=== PATIENT | female | born 1975 | race Caucasian/White ===

== ENCOUNTER 2019-01-29 05:14 | Emergency (ER) | payer SELFPAY ==
[2019-01-29 05:22] VITALS: TEMP 97.3
[2019-01-29] MEDS ORDERED: SODIUM CHLORIDE 0.9% 1000ML 1,000 ML IV ONE ×3 (05:27→06:57)
[2019-01-29] MEDS ORDERED: SODIUM CHLORIDE 0.9% FLUSH 10 ML SOL IV PRN (05:28)
[2019-01-29] MEDS ORDERED: HYDROMORPHONE 1 MG/ML SYRINGE IV ONE (05:28)
[2019-01-29] MEDS ORDERED: ONDANSETRON HCL 4 MG/2 ML SOL IV ONE (05:28)
[2019-01-29] MEDS ORDERED: ONDANSETRON HCL 4 MG/2 ML SOL ONE (05:29)
[2019-01-29] MEDS ORDERED: HYDROMORPHONE 1 MG/ML SYRINGE ONE (05:29)
[2019-01-29 06:00] LABS: BASOPHILS % (AUTO) 1 % (0-3); EOSINOPHILS % (AUTO) 2 % (0-9); HEMATOCRIT 40 % (35-47); HEMOGLOBIN 12.7 gm/dl (12.0-15.5); LYMPHOCYTES % (AUTO) 14.4 % (10-50); MEAN CORPUSCULAR HEMOGLOBIN 25.2 pg (27.0-32.0); MEAN CORPUSCULAR HGB CONC 31.9 gm/dl (32.0-36.0); MONOCYTES % (AUTO) 6.6 % (0-12); NEUTROPHILS % (AUTO) 76.3 % (37-80)
[2019-01-29 06:01] LABS: ALBUMIN 3.7 gm/dl (3.4-5.0); BILIRUBIN,TOTAL 0.3 mg/dl (0.2-1.0); CALCIUM 8.4 mg/dl (8.5-10.1); CARBON DIOXIDE 30.3 mEq/L (21-32); CREATININE 0.93 mg/dl (0.60-1.00); MEAN CORPUSCULAR VOLUME 79 fL (81-99); POTASSIUM 3.1 mMol/L (3.5-5.1); TOTAL PROTEIN 7.7 gm/dl (6.4-8.2)
[2019-01-29 07:02] VITALS: RESP 16
[2019-01-29] MEDS ORDERED: POTASSIUM CHLORIDE 2 MEQ/ML 60 MEQ, LIDOCAINE HCL 1% MDV 2 ML in SODIUM CHLORIDE 0.9% 1... IV ONE (07:16)
[2019-01-29] MEDS ORDERED: POTASSIUM CHLORIDE 2 MEQ/ML SOL IV ONE (07:20)
[2019-01-29] MEDS ORDERED: LIDOCAINE HCL 1% MPF 30 SOL ONE (07:32)
[2019-01-29 08:42] LABS: APPEARANCE,URINE Clear; BILIRUBIN,URINE NEGATIVE (NEGATIVE); COLOR,URINE Yellow; GLUCOSE, URINE (UA) NEGATIVE (NEGATIVE); KETONES,URINE NEGATIVE (NEGATIVE); LEUKOCYTE ESTERASE ,URINE NEGATIVE (NEGATIVE); NITRATE,URINE NEGATIVE (NEGATIVE); OCCULT BLOOD,URINE TRACE INTACT (NEG-TRACE); UROBILINOGEN,URINE 0.2 (0.2-1.0 EU)
[2019-01-29 08:50] LABS: CRYSTALS NEGATIVE (0-3 AVE/HPF); RBC,URINE 0-3 (0-3AV/HPF); WBC,URINE 0-2 (0-5AV/HPF)
[2019-01-29 08:51] LABS: BACTERIA 1+ (< 1+)
[2019-01-29] MEDS ORDERED: POTASSIUM CHLORIDE 10 MEQ TER PO ONE (09:40)
[2019-01-29] MEDS ORDERED: POTASSIUM CHLORIDE 10 MEQ TER ONE (09:42)
[2019-01-29 10:48] VITALS: BP 124/88; PULSE 68; O2SAT 97
== END 2019-01-29 09:56 | disposition home or self-care (01) | DRG 446 ==
LOC: ED 05:14
DX: K80.50 Calculus of bile duct without cholangitis or cholecystitis without obstruction (principal); R11.2 Nausea with vomiting, unspecified
CPT/HCPCS: 74177; 80053; 81001; 85025; 96365; 96366; 96374; 96375; 99070; 99283; 99285; J2405; J3480; Q9967; A9270-GY; J1170; J2001